=== PATIENT | female | born 1955 | race Caucasian/White ===

== ENCOUNTER 2018-09-26 14:18 | Emergency (ER) | payer OTHER ==
[2018-09-26 14:43] VITALS: BP 144/97; PULSE 85; RESP 20; TEMP 97.9
--- NOTE | 2018-09-26 14:58 | XR ---
EXAMINATION TYPE: XR chest 2V DATE OF EXAM: 09/26/2018 COMPARISON: NONE HISTORY: Shortness of breath TECHNIQUE: Frontal and lateral views of the chest are obtained. FINDINGS: Scattered senescent parenchymal changes noted. Hyperinflation compatible with COPD. No evidence for infiltrate. No evidence for atelectasis. Heart size is stable. Mediastinal structures are stable and grossly unremarkable. No evidence for hilar prominence. Degenerative changes dorsal spine. IMPRESSION: 1. No evidence for acute pulmonary disease.
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
[2018-09-26] MEDS ORDERED: IBUPROFEN 600 MG TAB PO STA (15:18)
--- NOTE | 2018-09-29 03:03 | CDI ---
Documentation Clarification OP Dear Óscar CHRISTIAN, DO Please do addendum to ED report for missing HPI and Physical examination. Thank you, Nancy Erickson Field Service Tech If you have any questions, please contact Director Of Speech Pathology at [phone] [facility]
== END 2018-09-26 15:20 | disposition home or self-care (01) ==
LOC: EC 14:18
DX: S20.219A Contusion of unspecified front wall of thorax, initial encounter (principal); F17.200 Nicotine dependence, unspecified, uncomplicated; Z88.0 Allergy status to penicillin; V89.2XXA Person injured in unspecified motor-vehicle accident, traffic, initial encounter; Y92.481 Parking lot as the place of occurrence of the external cause
CPT/HCPCS: 71046; 99284